=== PATIENT | male | born 1960 | race Caucasian/White ===

== ENCOUNTER 2023-05-21 21:31 | Emergency (ER) | payer OTHER ==
[~2023-05-21] VITALS: Ht 170.2 cm; Wt 103.4 kg
[2023-05-21] MEDS ORDERED: VALSARTAN320 MG PO (22:00)
[2023-05-21] MEDS ORDERED: HYDROCHLOROTHIA25 MG PO (22:00)
[2023-05-21] MEDS ORDERED: OMEPRAZOLE40 MG PO (22:00)
[2023-05-21] MEDS ORDERED: TAMSULOSIN HCL0.4 MG PO (22:01)
== END 2023-05-21 23:04 | disposition home or self-care (01) ==
LOC: ER 21:31
DX: M51.26 Other intervertebral disc displacement, lumbar region (principal)
CPT/HCPCS: 96372; 99283; J2250; J3490